=== PATIENT | female | born 1960 | race Caucasian/White ===

== ENCOUNTER → 2016-07-16 | Outpatient (CLI) | payer OTHER, BC ==
[~2016-07-16] MED LIST: AMLO-114 PO; ATOR-24 PO; DICL1GEL12 EXT; EFFSR/75 PO; FOLI1TAB7 PO; HYDR200T5 PO; LEVO150T9 PO; LOSA50TA6 PO; METH2.5T PO; SLFEC500 PO; TRAZ100T29 PO
[2016-07-16 09:41] LABS: HEMATOCRIT 42.1 % (37-47); MEAN CELL VOLUME 96.3 fL (80-100); MEAN CORPUSCULAR HEMOGLOBIN 31.8 pg (25-34); MEAN PLATELET VOLUME 9.5 fL (7.4-10.4); PLATELET COUNT 290 K/uL (130-400); RED BLOOD COUNT 4.37 M/uL (4.2-5.4); WHITE BLOOD COUNT 8.32 K/uL (4.8-10.8)
[2016-07-16 10:13] LABS: ALT/SGPT 31 U/L (12-78); BLOOD UREA NITROGEN 13 mg/dl (7-18); BUN/CREATININE RATIO 15.3 (10-20); CALCIUM 8.4 mg/dl (8.5-10.1); CARBON DIOXIDE 24 mmol/L (21-32); CHLORIDE 108 mmol/L (98-107); CHOLESTEROL 157 mg/dl (0-200); CREATININE 0.83 mg/dl (0.60-1.20); GLUCOSE 96 mg/dl (70-99); POTASSIUM 3.8 mmol/L (3.5-5.1); SODIUM 140 mmol/L (136-145)
[2016-07-16 10:23] LABS: ALB/GLOB RATIO 1.2 (0.9-2); ALKALINE PHOSPHATASE 64 U/L (45-117); AST/SGOT 19 U/L (15-37); CHOLESTEROL/HDL RATIO 2.7; HDL CHOLESTEROL 59 mg/dl; LDL CHOLESTEROL CALCULATED 76 mg/dl; THYROID STIMULATING HORMONE 0.625 uIu/ml (0.300-4.500); TRIGLYCERIDES 112 mg/dl (0-150); VERY LOW DENSITY LIPOPROT CALC 22 mg/dl
== END | disposition home or self-care (01) ==
LOC: C.LAB1850 08:53
PROVIDERS: ATTEND Physician Assistant
DX: E78.5 Hyperlipidemia, unspecified (principal); E03.9 Hypothyroidism, unspecified

== ENCOUNTER → 2016-08-04 | Outpatient (CLI) | payer OTHER, BC | END | disposition home or self-care (01) | LOC: C.RDSM 14:06 | PROVIDERS: ATTEND Family Medicine Sports Medicine | DX: M51.9 Unspecified thoracic, thoracolumbar and lumbosacral intervertebral disc disorder (principal) ==

== ENCOUNTER → 2016-08-04 | Outpatient (CLI) | payer OTHER, BC ==
--- NOTE | 2016-08-04 10:25 | DIAGNOSTIC IMAGING REPORT ---
RIGHT KNEE 3 VIEWS, LEFT KNEE 3 VIEWS HISTORY: M54.30 Sciatic painM05.9 Rheumatoid arthritis with rheumatoid fa Right COMPARISON: None. FINDINGS: There is no fracture or dislocation. Soft tissues are unremarkable. Cartilage spaces are maintained for age. Bone mineralization is intact. No knee effusions. No erosions identified. IMPRESSION: No significant abnormality within the right or left knee. Electronically signed by: Sathya Guerrero M.D. 08/04/2016 10:23 AM Dictated Date/Time: 08/04/2016 10:21 AM
--- NOTE | 2016-08-04 10:37 | DIAGNOSTIC IMAGING REPORT ---
LEFT HAND MIN 3 VIEWS ROUTINE CLINICAL HISTORY: Rheumatoid arthritis with rheumatoid factor. COMPARISON: None FINDINGS: Alignment of the left hand is anatomic. No fracture or suspicious osseous lesion is present. Joint spaces are preserved. No erosions are identified. There is minimal osteoarthritis of the left first carpometacarpal joint. IMPRESSION: 1. No radiographic evidence of an erosive/inflammatory arthropathy. 2. 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 Electronically signed by: Catracho Le M.D. 08/04/2016 10:35 AM Dictated Date/Time: 08/04/2016 10:34 AM
--- NOTE | 2016-08-04 11:15 | DIAGNOSTIC IMAGING REPORT ---
RIGHT HAND 3 VIEWS CLINICAL HISTORY: Rheumatoid arthritis. FINDINGS: 3 views of the right hand are obtained. No prior studies are available for comparison at the time of dictation. The skeletal structures are osteopenic. No fracture is seen. No bony erosion is identified. Mild degenerative change and subchondral cyst formation is present at the base of the second proximal phalanx. Minimal arthritic change is present the first carpometacarpal and metacarpophalangeal joints. The joint spaces of the hand are otherwise preserved. The overlying soft tissues are within normal limits. IMPRESSION: No acute bony abnormality is seen in the right hand. There is no radiographic evidence of erosive arthropathy. Electronically signed by: Canelo Retana M.D. 08/04/2016 11:13 AM Dictated Date/Time: 08/04/2016 11:12 AM
[2016-08-05 17:32] LABS: ALBUMIN 4.3 G/DL (3.8-4.8); GAMMA GLOBULIN 0.8 G/DL (0.8-1.7); TOTAL PROTEIN 6.9 G/DL (6.2-8.3)
== END | disposition home or self-care (01) ==
LOC: C.RAD1850 09:19
PROVIDERS: ATTEND Internal Medicine Rheumatology
DX: M05.9 Rheumatoid arthritis with rheumatoid factor, unspecified (principal); M25.561 Pain in right knee; M25.562 Pain in left knee; M54.30 Sciatica, unspecified side; Q79.6 Ehlers-Danlos syndromes; Z92.29 Personal history of other drug therapy; M51.9 Unspecified thoracic, thoracolumbar and lumbosacral intervertebral disc disorder

== ENCOUNTER → 2016-08-10 | Outpatient (CLI) | payer OTHER, BC ==
--- NOTE | 2016-08-10 09:04 | DIAGNOSTIC IMAGING REPORT ---
LUMBAR SPINE MRI HISTORY: Pain. Radiculopathy. LUMBAR DISC DISEASE TECHNIQUE: Multiplanar multisequence MRI of the lumbar spine was performed without the use of contrast. COMPARISON: None. FINDINGS: For the purpose of the report the L5-S1 disc space will be located on axial image 23 of 26. Moderate degenerative disc change L5-S1. Posterior disc herniation. 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 Mild disc desiccation throughout all components of the lumbar region. L1-L2: No significant central canal or neural foraminal narrowing. L2-L3: No significant central canal or neural foraminal narrowing. L3-L4: No significant central canal or neural foraminal narrowing. L4-L5: No significant central canal or neural foraminal narrowing. L5-S1: Left posterior disc herniation. Extruded disc fragment extending posterior to the superior aspect of S1. Maximum cephalocaudal dimension is 11 mm. Maximum transaxial dimension is 17 x 8 mm. Moderate deformity left anterior aspect of thecal sac. Left posterior lateral displacement left S1 nerve root. IMPRESSION: 1. Left posterior disc herniation L5-S1 with extruded disc component extending posterior to the superior margin of S1. 2. Localized deformity of the thecal sac and left S1 nerve root. 3. Remainder the lumbar spine is negative. Electronically signed by: Eric Martin M.D. 08/10/2016 9:02 AM Dictated Date/Time: 08/10/2016 8:58 AM
== END | disposition home or self-care (01) ==
LOC: C.MRI 08:07
PROVIDERS: ATTEND Family Medicine Sports Medicine
DX: M51.9 Unspecified thoracic, thoracolumbar and lumbosacral intervertebral disc disorder (principal); M51.27 Other intervertebral disc displacement, lumbosacral region

== ENCOUNTER → 2016-08-16 | Outpatient (CLI) | payer OTHER, BC | END | disposition home or self-care (01) | LOC: C.PAPS 14:37 | PROVIDERS: ATTEND Physician Assistant | DX: Z01.419 Encounter for gynecological examination (general) (routine) without abnormal findings (principal) ==

== ENCOUNTER → 2016-09-29 | Day surgery (SDC) | payer OTHER, BC ==
[2016-09-09 11:31] VITALS: Ht 160 cm; Wt 61.4 kg
[~2016-09-29] VITALS: Ht 160 cm; Wt 61.4 kg
[~2016-09-29] MED LIST changes: +IOPAMIDOL INJ 61% 15 ML VIAL ONE; +LIDOCAINE HCL 1% MPF 5 ML VIAL ONE; +SODIUM CHLORIDE 0.9% INJ 10 ML VIAL ONE
--- NOTE | 2016-09-29 13:49 | History & Physical Bridge - [place] ---
H&P Re-Evaluation Bridge Note: I have examined the patient, reviewed the History & Physical and in the interval since the performance of the History & Physical I have noted the following changes of clinical significance: No changes noted
--- NOTE | 2016-09-29 14:22 | Discharge Instructions ---
Discharge Instructions Date of Service Sep 29, 2016. Visit Reason for Visit: Lumbar Disc Displacement Discharge Discharge Diagnosis / Problem: left leg pain Discharge Goals Goal(s): Decrease discomfort, Improve function Activity Recommendations Activity Limitations: resume your previous activity Anesthesia . Post Anesthesia Instructions: If you have had General Anesthesia or IV Sedation: * Do not drive today. * Resume driving when surgeon permits. * Do not make important decisions or sign legal documents today. * Call surgeon for: 1. Temperature elevations greater than 101 degrees F. 2. Uncontrollable pain. 3. Excessive bleeding. 4. Persistent nausea and vomiting. 5. Medication intolerance (nausea, vomiting or rash). * For nausea and vomiting use only clear liquids such as: tea, soda, bouillon until nausea subsides, then gradually increase diet as tolerated. * If you have any concerns or questions, call your surgeon's office. If physician is unavailable and it is an emergency, call 911 or go to the nearest emergency room. . Diet Recommendations Recommended Home Diet: resume previous diet Procedures Procedures Performed: LUMBAR EPIDURAL STEROID INJECTION Pending Studies Studies pending at discharge: no Medical Emergencies . Who to Call and When: Medical Emergencies: If at any time you feel your situation is an emergency, please call 911 immediately. . Non-Emergent Contact Non-Emergency issues call your: Specialist . . "Provider Documentation" section prepared by Kulwinder Iyer. .
[2016-09-29 14:36] VITALS: BP 112/78; PULSE 79; TEMP 36.7; O2SAT 98
--- NOTE | 2016-09-29 14:41 | OPERATIVE REPORT ---
DATE OF OPERATION: 09/29/2016 PREOPERATIVE DIAGNOSIS: L5-S1 herniated nucleus pulposus with a left S1 radiculopathy. POSTOPERATIVE DIAGNOSIS: Same. PROCEDURE: Left paramedian L5-S1 intralaminar epidural steroid injection under fluoroscopic guidance. SURGEON: Dr. Kulwinder Iyer. INDICATIONS: The patient is a 56-year-old white female that presents today for an epidural injection to provide her with relief of radicular pain that has not responded to conservative measures. PHYSICAL EXAMINATION: Pleasant female seated comfortably. She has point tenderness to palpation of her left SI joint. She has no focal weakness, but has pain inhibition with straight leg testing of her left lower extremity with a positive seated and supine straight leg raise. CONSENT: Verbal and written consent was obtained from the patient. Risks and benefits were reviewed. Risks include but are not limited to abscess, allergic reaction, dural puncture and epidural hematoma. She wishes to proceed. PROCEDURE: The patient was taken back in the special procedures room of the [facility] where she was maintained in a prone position. Backside was cleansed with Betadine x3 and a dry sterile dressing was applied. Fluoroscope was used to identify the L5-S1 intralaminar space. Overlying skin on the left side was anesthetized with 4 mL of lidocaine 1% with a 25 gauge 1.5-inch needle. A 22-gauge 3-1/2 inch Tuohy needle was then directed down towards the intralaminar space. It was advanced under lateral fluoroscopic guidance and loss of resistance was noted at a depth of 4.5 with loss of resistance initially, 0.5 mL of Isovue showed it to be in the soft tissues. It was then progressed another 0.5 cm to 5 cm depth. Again, another mL of Isovue 300 contrast was injected in which then showed epidural uptake pattern which was confirmed with both AP and lateral views. She then underwent injection after negative aspiration of 40 mg of Depo-Medrol and 4 mL of preservative free sodium chloride. Injection was well tolerated and reproduced a familiar transient radicular sensation down the left side. DISPOSITION: 1. The patient is taken out into the discharge recovery area where she will be discharged home once discharge criteria have been met. 2. Follow up in the [facility] office in 4 weeks' time. I attest to the content of the Intraoperative Record and any orders documented therein. Any exception s are noted below.
== END | disposition home or self-care (01) ==
LOC: X.SURG 12:50
PROVIDERS: ATTEND Physical Medicine & Rehabilitation
DX: M51.17 Intervertebral disc disorders with radiculopathy, lumbosacral region (principal); M06.9 Rheumatoid arthritis, unspecified

== ENCOUNTER → 2017-08-26 | Outpatient (CLI) | payer OTHER, BC ==
[~2017-08-26] MED LIST changes: -FOLI1TAB7 PO; +FOLI1TAB8 PO; -IOPAMIDOL INJ 61% 15 ML VIAL ONE; -LIDOCAINE HCL 1% MPF 5 ML VIAL ONE; -SODIUM CHLORIDE 0.9% INJ 10 ML VIAL ONE
[2017-08-26 15:13] LABS: BASO % 0.4 %; BASO ABS # 0.04 K/uL (0-0.2); EOS % 3.4 %; EOS ABS # 0.31 K/uL (0-0.5); HEMATOCRIT 42.5 % (37-47); HEMOGLOBIN 14.9 g/dL (12.0-16.0); IG# 0.01 K/uL (0.00-0.02); LYMPH ABS # 2.26 K/uL (1.2-3.4); MEAN CELL VOLUME 94.2 fL (80-100); MEAN CORPUSCULAR HGB CONC 35.1 g/dl (32-36); MEAN PLATELET VOLUME 10.1 fL (7.4-10.4); MONO % 6.9 %; MONO ABS # 0.62 K/uL (0.11-0.59); NEUT % 64.2 %; NEUT ABS # 5.81 K/uL (1.4-6.5); PLATELET COUNT 286 K/uL (130-400); RED CELL DISTRIBUTION WIDTH CV 12.5 % (11.5-14.5); RED CELL DISTRIBUTION WIDTH SD 43.2 fL (36.4-46.3); WHITE BLOOD COUNT 9.05 K/uL (4.8-10.8)
[2017-08-26 15:33] LABS: ALT/SGPT 17 U/L (12-78); AST/SGOT 18 U/L (15-37); CREATININE 0.94 mg/dl (0.60-1.20)
[2017-08-26 15:35] LABS: ALKALINE PHOSPHATASE 95 U/L (45-117); TOTAL PROTEIN 8.2 gm/dl (6.4-8.2)
== END | disposition home or self-care (01) ==
LOC: C.LAB1850 14:29
PROVIDERS: ATTEND Internal Medicine Rheumatology
DX: M05.9 Rheumatoid arthritis with rheumatoid factor, unspecified (principal)